=== PATIENT | male | born 1960 | race Asian ===

== ENCOUNTER 2019-01-28 13:57 | Inpatient (IN) | payer OTHER ==
[~2019-01-28] VITALS: Ht 167.6 cm; Wt 92.1 kg
--- NOTE | 2019-01-28 00:20 | NUR ---
COMMUNICATION WITH PHARMACY PHARMACY CALLED AT THIS TIME TO CLARIFY "PENDING" ORDER FOR TORODOL, PHARMACIST RUBEN SAID THAT SINCE THE PATIENT WILL BE GETTING A "HIGH DOSE OF ASPIRIN IN THE MORNING" (325 MG) THAT PATIENT COULD POSSIBLY BLEED OUT IF THE TORODOL IS ALSO GIVEN. PHARMACIST VERBALIZED THAT SHE NEEDED THE MD TO "OK" THE ORDER FOR HER TO APPROVED MEDICATION. MD WILL BE PAGED.
[2019-01-28 14:00] VITALS: BP_SYST 139
--- NOTE | 2019-01-28 14:05 | NUR ---
Patient triaged and placed in waiting room. VSS and patient appears in no acute distress at this time. Accompanied by SON, awaiting available bed, and MD notified of need for MSE.
[2019-01-28 14:51] LABS: BASOPHILS # (AUTO) 0.1 K/uL (0.0-0.2); BASOPHILS % (AUTO) 1.2 % (0.0-2.0); EOSINOPHILS # (AUTO) 0.1 K/uL (0.0-0.4); EOSINOPHILS % (AUTO) 2.2 % (0.0-4.0); HEMATOCRIT 49.1 % (36-54); HEMOGLOBIN 16.5 g/dL (14.0-18.0); LYMPHOCYTES % (AUTO) 32.3 % (20.5-51.5); MEAN CORPUSCULAR HEMOGLOBIN 30 pg (27-31); MEAN CORPUSCULAR HGB CONC 34 % (32-36); MEAN CORPUSCULAR VOLUME 89 fL (79.0-98.0); MONOCYTES # (AUTO) 0.6 K/uL (0.0-1.0); NEUTROPHILS # (AUTO) 3.3 K/uL (1.8-7.7); NEUTROPHILS % (AUTO) 54.3 % (40.0-70.0); PLATELET COUNT (AUTO) 232 K/uL (130-430); RED BLOOD CELL COUNT(AUTO) 5.51 MIL/uL (4.2-6.2); RED CELL DISTRIBUTION WIDTH 12.9 % (9.0-15.0); WHITE BLOOD COUNT (AUTO) 6.1 K/uL (4.8-10.8)
[2019-01-28 15:02] LABS: ANION GAP 8 (5-15); CALCIUM 9.8 mg/dL (8.4-11.0); CHLORIDE 100 mmol/L (98-107); CREATININE 1.26 mg/dL (0.55-1.30); GLUCOSE 98 mg/dL (70-99); POTASSIUM 4.3 mmol/L (3.5-5.1); SODIUM SERUM 134 mmol/L (136-145); UREA NITROGEN, BLOOD 24 mg/dL (8-21)
[2019-01-28 15:06] LABS: GFR AFRICAN AMERICAN 76 mL/min (>90)
[2019-01-28 15:07] LABS: ALANINE AMINOTRANSFERASE 45 U/L (12-78); ALCOHOL, BLOOD < 3 mg/dL (<10); ASPARTATE AMINOTRANSFERASE 20 U/L (10-37); TOTAL BILIRUBIN 0.6 mg/dL (0.0-1.0)
[2019-01-28 15:08] LABS: INR 0.9 (0.80-1.20); PROTHROMBIN TIME 9.5 SECS (9.5-12.5)
--- NOTE | 2019-01-28 15:19 | NUR ---
Placed in room 2 . Placed on telemetry monitor, blood pressure machine and pulse oximeter. To gown for exam. Side rails up. Assumed care.
--- NOTE | 2019-01-28 15:20 | NUR ---
Patient to ER via triage for evaluation of headache and HTN, patient reports that he was seen at [facility] on 01/25 for same complaint. Patient is awake, alert and oriented in no acute distress, vital signs stable, respirations even and unlabored, skin warm and dry to touch. Patient able to ambulate without difficulty with slow, steady gait to bed 2. No neuro deficits noted, able to ambulate without difficulty with slow, steady gait.
[2019-01-28] MEDS ORDERED: ASPIRIN 325 MG TABLET PO ONE (15:30)
--- NOTE | 2019-01-28 15:45 | NUR ---
Patient reports that he is having 9/10 headache and it hurts when he touches his hair. Denies chest pain at this time.
[2019-01-28] MEDS ORDERED: LOSA50TA3 PO (15:51)
[2019-01-28] MEDS ORDERED: AMLO5TAB4 PO (15:51)
[2019-01-28] MEDS ORDERED: HYDR-3606 PO (15:51)
--- NOTE | 2019-01-28 16:00 | NUR ---
Patient resting quietly in no acute distress, vital signs stable, respirations even and unlabored, skin warm and dry to touch. Awaiting dispo.
--- NOTE | 2019-01-28 17:00 | NUR ---
Assessment remains unchanged
--- NOTE | 2019-01-28 18:00 | NUR ---
Patient resting quietly in no acute distress, vital signs stable, respirations even and unlabored, skin warm and dry to touch. Family remains at bedside, awaiting dispo.
--- NOTE | 2019-01-28 18:30 | NUR ---
Patient will be admitted to care of Dr Rodriguez. Admitted to tele unit. Will go to room 116-A. Belongings list completed. Summary report printed. Report will be given at bedside.
--- NOTE | 2019-01-28 18:37 | NUR ---
Transfer to tele room 116-A via ACLS protocol. Licensed nurse present. IV present no signs or symptoms of infiltration.
--- NOTE | 2019-01-28 19:35 | NUR ---
Patient transported to floor in stable condition via gurney. Family remains at bedside.
[2019-01-28 19:44] VITALS: BP_SYST 149
--- NOTE | 2019-01-28 19:44 | NUR ---
ADMISSION NOTE Received patient from ER via reyna, received report from NELLIE CID. Patient admitted with diagnosis of CHEST PAIN. Patient oriented to hospital routine, call light, toileting and safety-patient verbalized understanding.
[2019-01-28] MEDS ORDERED: OMEG-98 PO (20:00)
--- NOTE | 2019-01-28 20:00 | NUR ---
INITIAL NOTE AT INITIAL ASSESSMENT, PATIENT IS RESTING IN BED, STABLE, NO SIGNS OF RESPIRATORY DISTRESS. PATIENT VERBALIZES A HEADACHE, MD WILL BE PAGED FOR PRN ORDERS. SON IS AT BEDSIDE. PLAN OF CARE FOR THE EVENING IS COMMUNICATED WITH THE PATIENT AND HIS SON. CALL LIGHT- TEACH BACK IS SUCCESSFUL. BED IS LOCKED, ALARMED, AND AT THE LOWEST LEVEL. FALL AND SAFETY PRECAUTIONS WILL BE IN PLACE THROUGHOUT THE SHIFT.
[2019-01-28] MEDS ORDERED: KETOROLAC TROMETHAMINE 15 MG VIAL IVP PRN (21:45)
[2019-01-28] MEDS ORDERED: ACETAMINOPHEN 325 MG TABLET PO PRN (21:45)
[2019-01-28] MEDS ORDERED: NITROGLYCERIN 0.4 MG TAB.SUBL SL PRN (21:45)
--- NOTE | 2019-01-28 21:45 | NUR ---
COMMUNICATION W/ DR. MITALI CLAIRE PAGED BACK AT THIS TIME, NEW ORDERS RECEIVED. ORDERS WERE READ BACK, VERIFIED, AND ENTERED.
--- NOTE | 2019-01-28 22:00 | NUR ---
NOTE PATIENT IS RESTING IN BED, STABLE, NO SIGNS OF RESPIRATORY. PATIENT HAS TWO DAUGHTERS AT BEDSIDE. CALL LIGHT IS WITHIN REACH. BED IS LOCKED, ALARMED, AND AT THE LOWEST LEVEL.
[2019-01-28] MEDS: HYDROcodone/ACETAMIN 10-325 MG TAB PO PRN (22:18)
--- NOTE | 2019-01-29 | NUR ---
NOTE PATIENT VERBALIZES PAIN MEDICATION GIVEN WAS NOT EFFECTIVE ENOUGH FOR TOLERABLE PAIN, NURSING INTERVENTIONS WILL BE TAKEN (ICE PACKS FOR HEADACHE), WILL GIVE DIFFERENT PRN MEDICATION FOR PAIN IF INTERVENTION IS INEFFECTIVE. PATIENT IS OTHERWISE STABLE, RESTING IN BED. CALL LIGHT WITHIN REACH. BED IS LOCKED, ALARMED, AND AT THE LOWEST LEVEL.
--- NOTE | 2019-01-29 00:27 | NUR ---
paged paged for Dr Josse Rodriguez, dialed [phone]. s/w Radha.
[2019-01-29] MEDS ORDERED: KETOROLAC TROMETHAMINE 15 MG VIAL IVP PRN (00:45)
--- NOTE | 2019-01-29 00:45 | NUR ---
COMMUNICATION WITH DR. MITALI JASMINE PAGED AT THIS TIME PER PHARMACY REQUEST TO "OK" TORODOL AND ASPIRIN ORDER FOR THE SAME PATIENT. VERBALIZED THAT HE STILL APPROVES THE ORDERS. VERIFICATION READ BACK, VERIFIED, AND WILL BE COMMUNICATED TO THE PHARMACIST. MEDICATION WILL BE GIVEN TO PATIENT ONCE PHARMACY APPROVES.
--- NOTE | 2019-01-29 02:00 | NUR ---
NOTE PATIENT VERBALIZES RELIEF FROM HIS HEADACHE, AT THIS TIME, PATIENT IS RESTING IN BED, STABLE, NO SIGNS OF RESPIRATORY. CALL LIGHT IS WITHIN REACH. BED IS LOCKED, ALARMED, AND AT THE LOWEST LEVEL.
[2019-01-29 02:28] LABS: BILIRUBIN,URINE NEGATIVE (NEGATIVE); BLOOD, URINE 3+ (NEGATIVE); CLARITY/URINE CLEAR (CLEAR); COLOR,URINE YELLOW (YELLOW); GLUCOSE,URINE NEGATIVE (NEGATIVE); KETONES,URINE NEGATIVE (NEGATIVE); LEUKOCYTE ESTERASE ,URINE TRACE (NEGATIVE); NITRITE, URINE NEGATIVE (NEGATIVE); PH,URINE 5.5 (5.0-8.0); PROTEIN URINE NEGATIVE (NEGATIVE)
[2019-01-29 02:33] LABS: BACTERIA,URINE FEW /HPF (None Seen)
[2019-01-29 02:41] LABS: BARBITURATE, URINE NEGATIVE (NEG <=200); BENZODIAZEPINE, URINE NEGATIVE (NEG <=150); CANNABINOID, URINE NEGATIVE (NEG <=50); COCAINE, URINE NEGATIVE (NEG <=150); METHAMPHETAMINES SCREEN,URINE NEGATIVE (NEG <=500); OPIATE, URINE POSITIVE (NEG <=100); PHENCYCLIDINE SCREEN,URINE NEGATIVE (NEG <=25); UR TRICYCLIC ANTIDEPRESSANTS NEGATIVE (NEG <=300); URINE AMPHETAMINE NEGATIVE (NEG <=500); URINE METHADONE NEGATIVE (NEG <=200); URINE OXYCODONE SCREEN NEGATIVE (NEG <=100); URINE PROPOXYPHENE SCREEN NEGATIVE (NEG <=300)
[2019-01-29 02:59] VITALS: BP_SYST 140
--- NOTE | 2019-01-29 04:00 | NUR ---
NOTE PATIENT IS SLEEPING, STABLE, NO SIGNS OF RESPIRATORY. CALL LIGHT IS WITHIN REACH. BED IS LOCKED, ALARMED, AND AT THE LOWEST LEVEL.
--- NOTE | 2019-01-29 04:23 | NUR ---
Cardio Consultation Paged Reason for consultation: Elevated troponin Was consult called: Yes Person who was notified: Vero Consulting Physician: Dr Alejandra is on-call for Dr Hunt Motor Setter Specialty: Cardio Motor Setter Ordered By: Dr Josse Rodriguez
--- NOTE | 2019-01-29 05:30 | NUR ---
NOTE PATIENT IS SLEEPING, STABLE, NO SIGNS OF RESPIRATORY. CALL LIGHT IS WITHIN REACH. BED IS LOCKED, ALARMED, AND AT THE LOWEST LEVEL.
--- NOTE | 2019-01-29 06:57 | NUR ---
CLOSING NOTE AT THIS TIME, PATIENT IS RESTING IN BED, STABLE, NO SIGNS OF RESPIRATORY DISTRESS. CALL LIGHT IS WITHIN REACH. BED HAS BEEN LOCKED, ALARMED, AND AT THE LOWEST LEVEL. FALL AND SAFETY PRECAUTIONS HAVE BEEN IN PLACE THROUGHOUT THE SHIFT. WILL CONTINUE TO MONITOR CLOSELY UNTIL SHIFT REPORT IS GIVEN AT BEDSIDE TO AM NURSE.
--- NOTE | 2019-01-29 07:30 | NUR ---
Opening note Patient resting in bed at this time, A/Ox4, no complaints of pain. No SOB. IV patent and intact, no bleeding noted. On safety and aspiration precautions, HOB kept elevated. Bed alarm on, 2 side rails up, bed in lowest position, call light within reach. Patient in stable condition, Will continue to monitor.
[2019-01-29 07:49] LABS: BASOPHILS % (AUTO) 0.9 % (0.0-2.0); EOSINOPHILS # (AUTO) 0.1 K/uL (0.0-0.4); HEMOGLOBIN 16.2 g/dL (14.0-18.0); LYMPHOCYTES # (AUTO) 2.4 K/uL (1.0-5.5); LYMPHOCYTES % (AUTO) 48.4 % (20.5-51.5); MEAN CORPUSCULAR HEMOGLOBIN 30 pg (27-31); MEAN CORPUSCULAR HGB CONC 33 % (32-36); MEAN CORPUSCULAR VOLUME 91 fL (79.0-98.0); MONOCYTES # (AUTO) 0.5 K/uL (0.0-1.0); MONOCYTES % (AUTO) 10.5 % (1.7-9.3); NEUTROPHILS # (AUTO) 1.8 K/uL (1.8-7.7); NEUTROPHILS % (AUTO) 37.2 % (40.0-70.0); PLATELET COUNT (AUTO) 198 K/uL (130-430); RED BLOOD CELL COUNT(AUTO) 5.42 MIL/uL (4.2-6.2); WHITE BLOOD COUNT (AUTO) 4.9 K/uL (4.8-10.8)
[2019-01-29 08:05] LABS: CALCIUM 9.7 mg/dL (8.4-11.0); CREATININE 1.37 mg/dL (0.55-1.30); POTASSIUM 4.4 mmol/L (3.5-5.1)
[2019-01-29 08:09] LABS: ALBUMIN 3.7 g/dL (3.4-4.8); TOTAL BILIRUBIN 0.8 mg/dL (0.0-1.0)
[2019-01-29] MEDS: OMEGA-3/DHA/EPA/FISH OIL 1 GM CAPSULE PO SCH ×2 (08:22→20:25)
[2019-01-29] MEDS: HYDROcodone/ACETAMIN 10-325 MG TAB PO PRN ×2 (08:23→15:07)
[2019-01-29] MEDS: ONDANSETRON HCL 4 MG/2 ML VIAL IVP PRN ×2 (08:25→15:08)
[2019-01-29 08:30] VITALS: BP_SYST 155
[2019-01-29] MEDS: NACL 0.9% 1,000 ML IV SCH ×2 (08:40→18:34)
[2019-01-29] MEDS ORDERED: ENOXAPARIN SODIUM 40 MG/0.4 ML SYRINGE SUBCUT SCH (09:00)
[2019-01-29] MEDS ORDERED: ATENOLOL 25 MG TABLET(TENORMIN) PO SCH (09:00)
[2019-01-29] MEDS ORDERED: ASPIRIN 325 MG TABLET PO SCH (09:00)
[2019-01-29] MEDS ORDERED: LOSARTAN POTASSIUM 50 MG TABLET (COZAAR) PO SCH (09:00)
[2019-01-29] MEDS ORDERED: amLODIPine BESYLATE 5 MG TABLET PO SCH (09:00)
--- NOTE | 2019-01-29 09:15 | NUR ---
Rounds All medications given as ordered, tolerated well. No adverse side effects noted. No nausea, no vomiting noted. IV site patent, intact, and infusing fluids as ordered. Patient in stable condition.
--- NOTE | 2019-01-29 09:24 | NUR ---
CONSULTATION PAGED/CALLED Reason for Consultation: [] ARF Person Who was Notified: [] ALMAZ Consulting Physician: [] DR Geraldine WU/ DR MARSHALL PATHOLOGY TECH Professor Of Environmental Engineering Specialty: [] NEPHROLOGY Ordering Physician: [] DR Josse JASMINE
--- NOTE | 2019-01-29 11:30 | NUR ---
Rounds Patient resting in bed, no complaints of pain. No nausea, no vomiting noted. No SOB. Iv patent, intact, and infusing as ordered. Patient in stable condition.
[2019-01-29] MEDS ORDERED: ATORVASTATIN 20 MG TABLET PO ONE (11:45)
[2019-01-29] MEDS ORDERED: *LOVENOX 1MG/KG Q12H/PHARMACY XX ONE (11:45)
[2019-01-29 12:00] VITALS: BP_SYST 122
[2019-01-29] MEDS ORDERED: ENOXAPARIN SODIUM 40 MG/0.4 ML SYRINGE SUBCUT ONE (12:30)
--- NOTE | 2019-01-29 12:37 | NUR ---
ICH ADMITTING WAS CALLED TO CONFIRM TRANSFER FOR CORONARY ANGIOGRAM WITH DR JO AT 0900 TOMORROW 01/30/29 SPOKE TO [facility] AND WAS ASKED TO FAX THE ORDER AND AUTHORIZATION FOR THE PROCEDURE.
--- NOTE | 2019-01-29 14:19 | NUR ---
late entry HCP AFTER HOURS WAS CALLED TO ASK FOR AUTHORIZATION TO TRANSFER PT TO [facility]. SPOKE TO WENDI, WHO ASKED ME TO FAX FS, HP AND CLINICALS TO THEM. AWAITING FOR THEIR REPLY.
--- NOTE | 2019-01-29 14:30 | NUR ---
Rounds Patient resting in bed, at bedside. No complaints of pain. No SOB. No nausea, no vomiting. No dizziness. Bedside urinal emptied, noted with yellow urine. Oral care materials provided, face towels provided. Ice packs provided per patient request. patient in stable condition.
--- NOTE | 2019-01-29 14:45 | NUR ---
MADE A F/U CALL TO HCP AFTER HOURS, SPOKE TO LEANN RE: AUTHORIZATION TO TRANSFER TO [facility] FOR CORONARY ANGIOGRAM TOMORROW SCHEDULED BY DR JO FOR 0900. LEANN SAID THAT SHE WILL FOLLOW IT UP AND WILL CALL ONCE SHE GETS IT.
[2019-01-29] MEDS ORDERED: KETOROLAC TROMETHAMINE 30 MG VIAL IVP ONE (16:45)
--- NOTE | 2019-01-29 16:45 | NUR ---
Pain Patients complained of 8/10 headache and neck pain. Unrelieved by Damaso. Pineda CLAIRE new order for Toradol noted and carried out.
--- NOTE | 2019-01-29 17:00 | NUR ---
ANOTHER F/U CALL WAS MADE TO HCP AFTER HOURS FOR THE AUTH TO TRANSFER TO [facility]. SPOKE TO CARMELINA WHO SAID THAT SHE WILL FOLLOW UP THE REQUEST TO TRANSFER.
--- NOTE | 2019-01-29 17:21 | NUR ---
CARMELINA OF [facility] AFTER HOURS CALLED AND CONFIRMED THAT SHE FAXED TO [facility] FOR TRANSFER TOMORROW 01/30/[address] JO AT 0900. CARMELINA ALSO ARRANGED THE TRANSPORT WITH [facility] FOR [facility] REPAIRER AT 0600 AM 01/30/19. Addendum: 01/29/19 at 1731 by Neeru Hendrickson MT/ ADDENDUM: [facility]
--- NOTE | 2019-01-29 17:38 | NUR ---
CONFIRMED WITH [facility], CLIFF IN ADMITTING THAT AUTH FROM HCP WAS FAXED TO THEM.
[2019-01-29 18:21] VITALS: BP_SYST 134
--- NOTE | 2019-01-29 18:25 | NUR ---
Closing note Patient sitting up in bed, eating dinner. Pain medication effective,no complaints of pain. No SOB. IV patent, intact, and infusing as ordered. no infiltration noted. On safety and aspiration precautions, HOB kept elevated. Bed alarm on, 2 side rails up, bed in lowest position, call light within reach. Patient in stable condition, All needs met.
[2019-01-29 20:00] VITALS: BP_SYST 133
--- NOTE | 2019-01-29 20:00 | NUR ---
INITIAL NOTE AT INITIAL ASSESSMENT, PATIENT IS RESTING IN BED, STABLE, NO SIGNS OF RESPIRATORY DISTRESS. FAUSTINO IS AT BEDSIDE. PATIENT VERBALIZES NO PAIN. PLAN OF CARE FOR THE EVENING IS COMMUNICATED WITH THE PATIENT AND HIS . CALL LIGHT- TEACH BACK IS SUCCESSFUL. BED IS LOCKED, ALARMED, AND AT THE LOWEST LEVEL. FALL AND SAFETY PRECAUTIONS WILL BE IN PLACE THROUGHOUT THE SHIFT. PATIENT VERBALIZES UNDERSTANDING THAT HE WILL BE NPO AT MIDNIGHT FOR AM PROCEDURE AT [facility].
[2019-01-29] MEDS ORDERED: ATORVASTATIN 20 MG TABLET PO SCH (21:00)
[2019-01-29] MEDS ORDERED: ENOXAPARIN SODIUM 100 MG/ML SYRINGE SUBCUT SCH (21:00)
[2019-01-29] MEDS ORDERED: HYDROcodone/ACETAMIN 10-325 MG TAB PO PRN (21:30)
--- NOTE | 2019-01-29 22:00 | NUR ---
EDUCATION ABOUT DIAGNOSIS AND AFTER CARE AT THIS TIME, PATIENT IS EDUCATED ABOUT HIS DIAGNOSIS' AND AFTER CARE USING EDUCATIONAL PAMPHLET PRINTED FOR HIM. PATIENT SUCCESSFULLY VERBALIZES BACK UNDERSTANDING ABOUT TEACHING. ALL PATIENT'S QUESTIONS HAVE BEEN ADDRESSED AT THIS TIME. LIFESTYLE CHANGES AND RECOMMENDATION PLANNING DONE WITH PATIENT AT THIS TIME. WILL CONTINUE TO ENCOURAGE PATIENT TO ASK QUESTIONS HE MAY HAVE BEFORE DISCHARGE. AT THIS TIME, PATIENT IS RESTING IN BED, STABLE, NO SIGNS OF RESPIRATORY. CALL LIGHT IS WITHIN REACH. BED IS LOCKED, ALARMED, AND AT THE LOWEST LEVEL.
--- NOTE | 2019-01-29 22:30 | NUR ---
COMMUNICATION WITH INSPECTOR TOYS INSPECTOR TOYS PAULETTE HAS COMMUNICATED THAT SHE HAS PAGED THE INSPECTOR TOYS AT [facility], AND THAT PATIENT'S TRANSFER TO [facility] THE AM HAS BEEN APPROVED; INSPECTOR TOYS PAULETTE ALSO COMMUNICATED THAT SHE HAS BEEN INSTRUCTED TO CALL AGAIN AT 0500 TO BE ABLE TO VERIFY THE BED AND NURSE INFORMATION.
--- NOTE | 2019-01-29 23:30 | NUR ---
SNACKS OFFERED PRIOR TO NPO STATUS SNACKS OFFERED TO PATIENT AT THIS TIME, HE IS AWARE HE WILL BE NPO AT MIDNIGHT. PATIENT IS RESTING IN BED, STABLE, NO SIGNS OF RESPIRATORY. CALL LIGHT IS WITHIN REACH. BED IS LOCKED, ALARMED, AND AT THE LOWEST LEVEL.
--- NOTE | 2019-01-30 | NUR ---
NPO NOTE PATIENT HAS NOW BEEN PLACED ON NPO STATUS. PATIENT VERBALIZES BACK UNDERSTANDING HE WILL BE NPO FOR AM PROCEDURE AT [facility]. BEDSIDE TABLE CLEARED OF ALL FOODS AND DRINKS, NPO CONE PLACED AT BEDSIDE TABLE FOR REMINDER. PATIENT IS RESTING IN BED, STABLE, NO SIGNS OF RESPIRATORY. CALL LIGHT IS WITHIN REACH. BED IS LOCKED, ALARMED, AND AT THE LOWEST LEVEL.
[2019-01-30 01:10] VITALS: BP_SYST 143
--- NOTE | 2019-01-30 02:00 | NUR ---
NOTE PATIENT IS SLEEPING, STABLE, NO SIGNS OF RESPIRATORY. CALL LIGHT IS WITHIN REACH. BED IS LOCKED, ALARMED, AND AT THE LOWEST LEVEL.
[2019-01-30 02:12] VITALS: BP_SYST 138
[2019-01-30 02:58] LABS: BILIRUBIN,URINE NEGATIVE (NEGATIVE); CLARITY/URINE CLEAR (CLEAR); COLOR,URINE YELLOW (YELLOW); GLUCOSE,URINE NEGATIVE (NEGATIVE); KETONES,URINE NEGATIVE (NEGATIVE); LEUKOCYTE ESTERASE ,URINE TRACE (NEGATIVE); NITRITE, URINE NEGATIVE (NEGATIVE); PH,URINE 5.5 (5.0-8.0); PROTEIN URINE NEGATIVE (NEGATIVE); UROBILINOGEN,URINE 0.2 (0.2-1.0)
[2019-01-30 03:06] LABS: BLOOD, URINE TRACE (NEGATIVE)
[2019-01-30 03:08] LABS: BACTERIA,URINE FEW /HPF (None Seen)
[2019-01-30] MEDS: NACL 0.9% 1,000 ML IV SCH (03:45)
--- NOTE | 2019-01-30 04:00 | NUR ---
NOTE PATIENT IS SLEEPING, STABLE, NO SIGNS OF RESPIRATORY. CALL LIGHT IS WITHIN REACH. BED IS LOCKED, ALARMED, AND AT THE LOWEST LEVEL.
--- NOTE | 2019-01-30 04:35 | NUR ---
COMMUNICATION WITH RADIOLOGY SANJUANITA FROM RADIOLOGY PAGED BACK AT THIS TIME, SHE COMMUNICATED THAT PATIENT'S US RENAL ORDERED BY MD WILL NOT BE ABLE TO BE COMPLETED BEFORE THE PATIENT IS DISCHARGED AT 0600 SINCE IT WAS NOT A "STAT" ORDER. SHE VERBALIZED THAT THE DAY SHIFT TECH WILL NOT ARRIVE FOR SHIFT UNTIL 0700, WHICH IS AFTER PATIENT'S ESTIMATED TIME FOR DISCHARGE.
[2019-01-30 04:56] LABS: BASOPHILS % (AUTO) 0.7 % (0.0-2.0); EOSINOPHILS # (AUTO) 0.2 K/uL (0.0-0.4); EOSINOPHILS % (AUTO) 3.4 % (0.0-4.0); HEMATOCRIT 44.2 % (36-54); HEMOGLOBIN 14.8 g/dL (14.0-18.0); LYMPHOCYTES # (AUTO) 2.3 K/uL (1.0-5.5); LYMPHOCYTES % (AUTO) 42.3 % (20.5-51.5); MEAN CORPUSCULAR HEMOGLOBIN 30 pg (27-31); MEAN CORPUSCULAR HGB CONC 33 % (32-36); MEAN CORPUSCULAR VOLUME 90 fL (79.0-98.0); MONOCYTES # (AUTO) 0.5 K/uL (0.0-1.0); MONOCYTES % (AUTO) 9.4 % (1.7-9.3); NEUTROPHILS # (AUTO) 2.4 K/uL (1.8-7.7); NEUTROPHILS % (AUTO) 44.2 % (40.0-70.0); PLATELET COUNT (AUTO) 195 K/uL (130-430); RED BLOOD CELL COUNT(AUTO) 4.89 MIL/uL (4.2-6.2); RED CELL DISTRIBUTION WIDTH 12.9 % (9.0-15.0); WHITE BLOOD COUNT (AUTO) 5.3 K/uL (4.8-10.8)
[2019-01-30 05:17] LABS: ALBUMIN 3.3 g/dL (3.4-4.8); CALCIUM 8.9 mg/dL (8.4-11.0); CREATININE 1.4 mg/dL (0.55-1.30); TOTAL BILIRUBIN 0.6 mg/dL (0.0-1.0); URIC ACID 7.7 mg/dL (2.4-7.0)
--- NOTE | 2019-01-30 05:19 | NUR ---
NOTE PATIENT IS RESTING IN BED, STABLE, NO SIGNS OF RESPIRATORY. CALL LIGHT IS WITHIN REACH. BED IS LOCKED, ALARMED, AND AT THE LOWEST LEVEL.
--- NOTE | 2019-01-30 06:10 | NUR ---
COMMUNICATION WITH [facility] RN REPORT GIVEN TO NELLIE GASPAR WHO WILL BE RECEIVING PATIENT IN ROOM I-269B IN [facility] AT [facility]. RN VERBALIZES THE BED IS READY TO RECEIVE PATIENT. NELLIE GASPAR HAS REQUESTED TO KEEP PATIENT'S IV AT THIS TIME. REQUEST WILL BE GRANTED. CHARGE NURSE SUDHAKAR FOR [facility] ALSO AWARE. HOSPITAL PHONE NUMBER: [phone].
--- NOTE | 2019-01-30 06:25 | NUR ---
D/C Patient MEDIC-1 EMT KATHARINE AND ONE OTHER EMT ARE TAKING PATIENT VIA [facility] FOR TRANSFER TO [facility]. Patient given medication reconciliation form and D/C instructions. Exit Care provided. Patient verbalized understanding. MD discussed with patient the results and treatment provided. FAUSTINO AT BEDSIDE. Ambulatory with steady gait for TRANSFER to [facility] FOR TRANSFER TO [facility]- BED I269B. Patient in stable condition, ID band removed. WHITE BAND WITH PATIENT'S NAME AND ATTACHED. IV catheter WILL BE KEPT IN PER RECEIVING RN (CHASITY) REQUEST. Rx of given. Patient educated on pain management. All belongings sent with patient.
[2019-01-30] MEDS ORDERED: ATORVASTATIN 20 MG TABLET PO SCH (09:00)
== END 2019-01-30 06:25 | disposition short-term general hospital (02) | DRG 282 ==
LOC: SED 13:57 → STU 17:41
PROVIDERS: ADMIT Internal Medicine; ATTEND Internal Medicine
DX: I21.4 Non-ST elevation (NSTEMI) myocardial infarction (principal); E78.5 Hyperlipidemia, unspecified; E66.9 Obesity, unspecified; R51 Headache; I12.9 Hypertensive chronic kidney disease with stage 1 through stage 4 chronic kidney disease, or unspecified chronic kidney disease; N18.9 Chronic kidney disease, unspecified; Z87.442 Personal history of urinary calculi; Z90.49 Acquired absence of other specified parts of digestive tract; Z88.0 Allergy status to penicillin; Z68.32 Body mass index [BMI] 32.0-32.9, adult
CPT/HCPCS: 36415; 70450-TC; 71045; 80053; 80061; 80307; 81000-TC; 82550-TC; 84484; 84550-TC; 85025; 85379; 85610-TC; 85730-TC; 87086; 93005; 93306; 99285; G0378; G0482; J1650; J1885; J2405; J7030